=== PATIENT | male | born 1965 | race Two or more races ===

== ENCOUNTER 2018-12-19 12:21 | Emergency (ER) | payer OTHER ==
--- OUTSIDE RECORDS SUMMARY | 2018-12-19 12:35 | XMS REPORT | Continuity of Care Document ---
:1965 External Reference #:[id number] Author Name Marcela Watt M.D. (transmitted by agent of provider Mark Aponte) Address [address] [place] [address] [place] [address] Care Team Providers Name Role Phone Hans Pandey MD - Internal Care Team Information Front End Specialist [phone] Medicine Problems Active Problems Provider Date Chest pain Puma Wayne M.D., [facility] Onset: 03/01/2017 Palpitations Puma Wayne M.D., [facility] Onset: 03/01/2017 Substance abuse counseling Puma Wayne M.D., [facility] Onset: 2016 Dyspnea Puma Wayne M.D., [facility] Onset: 06/13/2017 Social History Type Date Description Comments Sex Unknown ETOH Use Currently consumes Beer 3-6 per day alcohol Tobacco Use Start: Unknown Patient is a current 1/2 ppd x 40+ years smoker, smokes every day Recreational Drug Use Regularly uses Marijuana Smoking Status Reviewed: 11/22/18 Patient is a current 1/2 ppd x 40+ years smoker, smokes every day Exercise Type/Frequency Exercises sporadically Allergies, Adverse Reactions, Alerts Description No Known Drug Allergies Medications Active Medications SIG Qnty Indications Ordering Provider Date Diclofenac Sodium apply 2gm 4 times 100gm Marcela Watt, 08/25/2017 1% daily as needed M.D. Gel for pain Lisinopril 1 by mouth every Unknown 10mg day Tablets Spiriva Respimat 2 puffs every day Unknown at bedtime 2.5mcg/Act Aerosol Tylenol Extra 2 by mouth bid for Unknown Strength back pain 500mg Tablets Symbicort 2 puff twice a day Unknown 160-4.5mcg/Act Aerosol Ventolin HFA 2 puffs by mouth Unknown four times a day 108(90Base) mcg/Act as needed Aerosol Albuterol Sulfate 1 vial via Unknown nebulizer 4 times (2.5mg/3ML) 0.083% daily as needed Nebulizer Medications Administered in Office Medication SIG Qnty Indications Ordering Provider Date Depomedrol 40MG Marcela Watt M.D. 08/16/2018 Injection Depomedrol 40MG Marcela Watt M.D. 08/25/2017 Injection Depomedrol 40MG Noe Siddiqui MD 06/02/2017 Injection Depomedrol 40MG Adan Washington PA-C 04/04/2017 Injection Inj, Regadenoson, 0.1 MG Puma Wayne M.D., 03/14/2017 Injection LYLA PAINTING Technetium TC 99M Puma Wayne M.D., 03/14/2017 Tetrofosmin, Per Unit Dose FACC, FASNC Up To 40 Millicuries Injection Depomedrol 40MG Noe Siddiqui MD 02/01/2017 Injection Immunizations Description No Information Available Vital Signs Date Vital Result Comment 11/22/2018 3:20pm Height 70 inches 5'10" Weight 135.00 lb Heart Rate 72 /min BP Systolic 136 mmHg BP Diastolic 78 mmHg BMI (Body Mass Index) 19.4 kg/m2 08/16/2018 2:39pm Height 70 inches 5'10" Weight 135.00 lb Heart Rate 76 /min BP Systolic 138 mmHg BP Diastolic 78 mmHg Respiratory Rate 14 /min Pain Level 6 BMI (Body Mass Index) 19.4 kg/m2 Results Description No Information Available Procedures Date Code Description Status 11/22/2018 Inject/Drain Joint/Bursa Small W/O US Completed 08/16/2018 Inject/Drain Joint/Bursa Intermediate W/O US Completed Medical Devices Description No Information Available Encounters Description No Information Available Assessments Date Code Description Provider 11/22/2018 S62.002K Unspecified fracture of navicular Marcela Watt M.D. [scaphoid] bone of left wr 11/22/2018 M19.132 Post-traumatic osteoarthritis, left wrist Marcela Watt , M.D. 08/16/2018 S62.002K Unspecified fracture of navicular Marcela Watt M.D. [scaphoid] bone of left wr 08/16/2018 M19.132 Post-traumatic osteoarthritis, left wrist Marcela Watt M.D. Plan of Treatment Future Appointment(s):02/28/2019 1:00 pm [facility] - Marcela Watt M.D.S62.002K Unspecified fracture of navicular [scaphoid] bone of left wrFollow up:Follow up: early .132 Post-traumatic osteoarthritis, left wrist Functional Status Description No Information Available Mental Status Description No Information Available Referrals Description No Information Available
[2018-12-19 12:47] VITALS: BP 161/78
[2018-12-19] MEDS ORDERED: Lidocaine 2% PF * 5 ML VIAL INJ ONE (13:05)
[2018-12-19] MEDS ORDERED: Tetan/Diph/Pertus SYR(Tdap)* 0.5 ML SYR(BOOSTRIX) use SYR contains LATEX IM ONE (13:05)
[2018-12-19] MEDS ORDERED: Gelfoam 12-7 ADSORBABL SPONGE* 1 EA SPONGE TOPICAL ONE (13:11)
--- NOTE | 2018-12-19 13:33 | UC ---
Laceration HPI - HPI Summary HPI Summary: cut the tip of his left middle finger injury at work this morning around 1130 . left middle finger got cut under a metal sheer . bleeding was controlled by applying pressure - History Of Current Complaint Chief Complaint: UCLaceration Stated Complaint: FINGER LACERATION Time Seen by Provider: 12/19/18 12:36 Hx Obtained From: Patient Laceration Location: Finger - partial amputation of left middle finger tip Mechanism Of Injury: Sharp Trauma Onset/Duration: Sudden Onset, Lasting Hours - 1 hr ago at work Severity: Severe Pain Intensity: 7 Aggravating Factors: Movement - Allergies/Home Medications Allergies/Adverse Reactions: Allergies Allergy/AdvReac Type Severity Reaction Status Date / Time No Known Allergies Allergy Verified 12/19/18 12:38 PMH/Surg Hx/FS Hx/Imm Hx Cardiovascular History: Hypertension Respiratory History: COPD - Surgical History Surgical History: Yes Surgery Procedure, Year, and Place: CARPAL TUNNEL BILATERAL WRISTS. BROKEN MID FINGER LEFT HAND-HARDWARE REMOVED - Family History Known Family History: Positive: Hypertension - Social History Alcohol Use: Daily Substance Use Type: Marijuana Smoking Status (MU): Light Every Day Tobacco Smoker Type: Cigarettes Amount Used/How Often: 5 CIGS A DAY - Immunization History Most Recent Tetanus Shot: OVER 5 YEARS AGO Review of Systems All Other Systems Reviewed And Are Negative: Yes Constitutional: Positive: Negative Skin: Positive: Negative Eyes: Positive: Negative ENT: Positive: Negative Is Patient Immunocompromised?: No Physical Exam Triage Information Reviewed: Yes Appearance: Well-Appearing, Well-Nourished, Pain Distress Vital Signs: Initial Vital Signs Temp 98.5 F 12/19/18 12:39 Pulse 78 12/19/18 12:39 Resp 18 12/19/18 12:39 BP 161/78 12/19/18 12:39 Pulse Ox 99 12/19/18 12:39 Vital Signs Reviewed: Yes Eye Exam: Normal Eyes: Positive: Conjunctiva Clear ENT: Positive: Normal ENT inspection, Hearing grossly normal, Pharynx normal Neck: Positive: Supple, Nontender, No Lymphadenopathy Respiratory: Positive: Chest non-tender, Lungs clear, Normal breath sounds Cardiovascular: Positive: RRR, No Murmur, Pulses Normal Skin: Positive: Other - left middle finger , distal phalanges , partial amputation involving the nail + bleeding Laceration Repair - Laceration Repair 1 Procedure Summary: partial amputation left middle finger distal phalanges involving the nail digital block was done for anesthesia , sugicel foam was place at the tip of the finger with pressure dressing Description: Irregular : No Repair Necessary Laceration Size After Repair: Length (cm) - 2 Modified For Repair: No Type Injection: Digital Anesthesia Used: 2.0% Lido - 4 cc Cleansing Completed Via Routine Prep: Yes Laceration Course/Dx - Diagnosis Provider Diagnosis: Avulsion, finger tip Discharge ED - Sign-Out/Discharge Documenting (check all that apply): Patient Departure All imaging exams completed and their final reports reviewed: No Studies - Discharge Plan Condition: Stable Disposition: HOME Prescriptions: cephALEXin [Keflex] 500 mg PO TID #21 capsule Patient Education Materials: Skin Avulsion (ED), Finger Amputation (ED) Referrals: Hans Pandey MD [Primary Care Provider] - Marcela Watt MD [Medical Doctor] - 2 Days - Billing Disposition and Condition Condition: STABLE Disposition: Home
--- NOTE | 2018-12-19 14:09 | UC ---
- Progress Note Progress Note: xray report left middle finger : IMPRESSION: Lacerated tip of the left third digit. The fractured tuft of the distal phalanx is likely exposed at the margin of the laceration. Near-anatomic alignment maintained. Course/Dx - Diagnoses Provider Diagnoses: Avulsion, finger tip Discharge ED - Sign-Out/Discharge Documenting (check all that apply): Patient Departure All imaging exams completed and their final reports reviewed: Yes - Discharge Plan Condition: Stable Disposition: HOME Prescriptions: cephALEXin [Keflex] 500 mg PO TID #21 capsule Patient Education Materials: Finger Amputation (ED), Skin Avulsion (ED) Referrals: Hans Pandey MD [Primary Care Provider] - Marcela Watt MD [Medical Doctor] - 2 Days - Billing Disposition and Condition Condition: STABLE Disposition: Home
== END 2018-12-19 14:05 | disposition home or self-care (01) ==
LOC: UCCORT 12:21
DX: S68.113A Complete traumatic metacarpophalangeal amputation of left middle finger, initial encounter (principal); W31.89XA Contact with other specified machinery, initial encounter; Y92.89 Other specified places as the place of occurrence of the external cause; Y99.0 Civilian activity done for income or pay; Z23 Encounter for immunization; I10 Essential (primary) hypertension; J44.9 Chronic obstructive pulmonary disease, unspecified; F17.210 Nicotine dependence, cigarettes, uncomplicated
CPT/HCPCS: 12001; 64450; 73140; 90471; 90715; 96372; 99212; A9270-GY; G0463